=== PATIENT | female | born 1940 | race American Indian/Alaskan Native ===

== ENCOUNTER 2020-04-13 13:55 | Emergency (ER) | payer MEDICARE ==
[2020-04-13] MEDS ORDERED: ONDANSETRON 4 MG/2 ML INJ IV ONE (14:15)
[2020-04-13] MEDS ORDERED: MORPHINE 4 MG/1 ML INJ IV ONE (14:15)
--- NOTE | 2020-04-13 14:31 | Emergency Department Report ---
<ELSY MELGAR - Last Filed: 04/13/20 17:27> ED General Adult HPI - General Chief complaint: Back Pain/Injury Stated complaint: BACK PAIN Time Seen by Provider: 04/13/20 14:12 Source: patient Mode of arrival: Ambulatory Limitations: No Limitations - History of Present Illness Initial comments: Patient is a 79-year-old female presents emergency room complaints of sudden onset of left flank pain that radiates to the left lower abdomen that began last week but worsened this morning. She states that she is not sure if she twisted her back but denies any known fall or injury. She has never had pain like this in the past. She appears to be in discomfort and is unable to sit still and appears to be writhing in pain. She denies any nausea, vomiting, diarrhea, fever, hematochezia, hematemesis, melena, urinary symptoms. Denies any history of nephrolithiasis. She has a past medical history of hypertension. No allergies to medications. - Related Data Previous Rx's Medication Instructions Recorded Last Taken Type Acetaminophen [Tylenol] 500 mg PO Q6HR PRN #30 tablet 04/13/20 Unknown Rx traMADoL [Ultram] 50 mg PO Q6HR PRN #12 tablet 04/13/20 Unknown Rx Allergies Allergy/AdvReac Type Severity Reaction Status Date / Time No Known Allergies Allergy Unverified 04/13/20 14:09 ED Review of Systems Comment: All other systems reviewed and negative ED Past Medical Hx - Past Medical History Previous Medical History?: Yes Hx Hypertension: Yes Hx Diabetes: Yes - Surgical History Past Surgical History?: No - Social History Smoking Status: Never Smoker Substance Use Type: None - Medications Home Medications: Home Medications Medication Instructions Recorded Confirmed Last Taken Type Acetaminophen [Tylenol] 500 mg PO Q6HR PRN #30 tablet 04/13/20 Unknown Rx traMADoL [Ultram] 50 mg PO Q6HR PRN #12 tablet 04/13/20 Unknown Rx ED Physical Exam - General Limitations: No Limitations General appearance: alert, other (appears to be in discomfort) - Head Head exam: Present: atraumatic, normocephalic - Eye Eye exam: Present: normal appearance - ENT ENT exam: Present: mucous membranes moist - Respiratory Respiratory exam: Present: normal lung sounds bilaterally. Absent: respiratory distress, wheezes, rales, rhonchi, stridor, chest wall tenderness, accessory muscle use, decreased breath sounds, prolonged expiratory - Cardiovascular Cardiovascular Exam: Present: regular rate, normal rhythm, normal heart sounds. Absent: systolic murmur, diastolic murmur, rubs, gallop - GI/Abdominal GI/Abdominal exam: Present: soft, tenderness (left lateral ), normal bowel sounds. Absent: distended, guarding, rebound, rigid - Back Exam Back exam: Present: normal inspection, full ROM, paraspinal tenderness (left lumbar). Absent: CVA tenderness (R), CVA tenderness (L), vertebral tenderness - Neurological Exam Neurological exam: Present: alert, oriented X3, CN II-XII intact, normal gait. Absent: motor sensory deficit - Psychiatric Psychiatric exam: Present: normal affect, normal mood - Skin Skin exam: Present: warm, dry, intact ED Medical Decision Making - Lab Data Result diagrams: 04/13/20 14:37 04/13/20 14:37 Lab Results 04/13/20 04/13/20 04/13/20 Range/Units 14:37 14:37 14:37 WBC 7.1 (4.5-11.0) K/mm3 RBC 5.27 H (3.65-5.03) M/mm3 Hgb 14.6 H (10.1-14.3) gm/dl Hct 45.2 H (30.3-42.9) % MCV 86 (79-97) fl MCH 28 (28-32) pg MCHC 32 (30-34) % RDW 14.6 (13.2-15.2) % Plt Count 273 (140-440) K/mm3 Lymph % (Auto) 33.6 (13.4-35.0) % Rooks % (Auto) 8.2 H (0.0-7.3) % Eos % (Auto) 2.3 (0.0-4.3) % Baso % (Auto) 0.9 (0.0-1.8) % Lymph # (Auto) 2.4 (1.2-5.4) K/mm3 Rooks # (Auto) 0.6 (0.0-0.8) K/mm3 Eos # (Auto) 0.2 (0.0-0.4) K/mm3 Baso # (Auto) 0.1 (0.0-0.1) K/mm3 Seg Neutrophils % 55.0 (40.0-70.0) % Seg Neutrophils # 3.9 (1.8-7.7) K/mm3 PT 12.8 (12.2-14.9) Sec. INR 0.98 (0.87-1.13) APTT 27.7 (24.2-36.6) Sec. Sodium 137 (137-145) mmol/L Potassium 4.1 (3.6-5.0) mmol/L Chloride 102.7 (98-107) mmol/L Carbon Dioxide 23 (22-30) mmol/L Anion Gap 15 mmol/L BUN 13 (7-17) mg/dL Creatinine 1.0 (0.6-1.2) mg/dL Estimated GFR > 60 ml/min BUN/Creatinine Ratio 13 % Glucose 118 H (65-100) mg/dL Calcium 9.6 (8.4-10.2) mg/dL Total Bilirubin 0.50 (0.1-1.2) mg/dL AST 11 (5-40) units/L ALT 8 (7-56) units/L Alkaline Phosphatase 85 (35-129) units/L Troponin T (0.00-0.029) ng/mL Total Protein 7.1 (6.3-8.2) g/dL Albumin 4.4 (3.9-5) g/dL Albumin/Globulin Ratio 1.6 % Lipase (13-60) units/L Urine Color (Yellow) Urine Turbidity (Clear) Urine pH (5.0-7.0) Ur Specific [place] (1.003-1.030) Urine Protein (Negative) mg/dL Urine Glucose (UA) (Negative) mg/dL Urine Ketones (Negative) mg/dL Urine Blood (Negative) Urine Nitrite (Negative) Urine Bilirubin (Negative) Urine Urobilinogen (<2.0) mg/dL Ur Leukocyte Esterase (Negative) Urine WBC (Auto) (0.0-6.0) /HPF Urine RBC (Auto) (0.0-6.0) /HPF U Epithel Cells (Auto) (0-13.0) /HPF Urine Mucus /HPF 04/13/20 04/13/20 04/13/20 Range/Units 14:37 14:39 14:52 WBC (4.5-11.0) K/mm3 RBC (3.65-5.03) M/mm3 Hgb (10.1-14.3) gm/dl Hct (30.3-42.9) % MCV (79-97) fl MCH (28-32) pg MCHC (30-34) % RDW (13.2-15.2) % Plt Count (140-440) K/mm3 Lymph % (Auto) (13.4-35.0) % Rooks % (Auto) (0.0-7.3) % Eos % (Auto) (0.0-4.3) % Baso % (Auto) (0.0-1.8) % Lymph # (Auto) (1.2-5.4) K/mm3 Rooks # (Auto) (0.0-0.8) K/mm3 Eos # (Auto) (0.0-0.4) K/mm3 Baso # (Auto) (0.0-0.1) K/mm3 Seg Neutrophils % (40.0-70.0) % Seg Neutrophils # (1.8-7.7) K/mm3 PT (12.2-14.9) Sec. INR (0.87-1.13) APTT (24.2-36.6) Sec. Sodium (137-145) mmol/L Potassium (3.6-5.0) mmol/L Chloride (98-107) mmol/L Carbon Dioxide (22-30) mmol/L Anion Gap mmol/L BUN (7-17) mg/dL Creatinine (0.6-1.2) mg/dL Estimated GFR ml/min BUN/Creatinine Ratio % Glucose (65-100) mg/dL Calcium (8.4-10.2) mg/dL Total Bilirubin (0.1-1.2) mg/dL AST (5-40) units/L ALT (7-56) units/L Alkaline Phosphatase (35-129) units/L Troponin T < 0.010 (0.00-0.029) ng/mL Total Protein (6.3-8.2) g/dL Albumin (3.9-5) g/dL Albumin/Globulin Ratio % Lipase 35 (13-60) units/L Urine Color Yellow (Yellow) Urine Turbidity Clear (Clear) Urine pH 6.0 (5.0-7.0) Ur Specific [place] 1.015 (1.003-1.030) Urine Protein <15 mg/dl (Negative) mg/dL Urine Glucose (UA) Neg (Negative) mg/dL Urine Ketones Neg (Negative) mg/dL Urine Blood Neg (Negative) Urine Nitrite Neg (Negative) Urine Bilirubin Neg (Negative) Urine Urobilinogen < 2.0 (<2.0) mg/dL Ur Leukocyte Esterase Neg (Negative) Urine WBC (Auto) < 1.0 (0.0-6.0) /HPF Urine RBC (Auto) 3.0 (0.0-6.0) /HPF U Epithel Cells (Auto) 2.0 (0-13.0) /HPF Urine Mucus Few /HPF - Radiology Data Radiology results: report reviewed Ordering Physician: AVNI HERRING MD Date of Service: 04/13/20 Procedure(s): CT abdomen pelvis wo con Accession Number(s): [id number] cc: AVNI HERRING MD CT ABDOMEN AND PELVIS WITHOUT CONTRAST INDICATION / CLINICAL INFORMATION: abd pain. TECHNIQUE: Axial CT images were obtained through the abdomen and pelvis without IV contrast. Sagittal and coronal reformatted images. All CT scans at this location are performed using CT dose reduction for ALARA by means of automated exposure control. COMPARISON: None available. FINDINGS: LOWER CHEST: No significant abnormality. LIVER: No significant abnormality. GALLBLADDER: No significant abnormality. BILE DUCTS: No significant abnormality. PANCREAS: No significant abnormality. SPLEEN: No significant abnormality. ADRENALS: No significant abnormality. RIGHT KIDNEY and URETER: There appear to be multiple renal sinus cysts within the right kidney. A 1.2 cm exophytic cyst is identified near mid pole. A 2.2 cm cyst is identified at the inferior pole. LEFT KIDNEY and URETER: No significant abnormality. STOMACH and SMALL BOWEL: No significant abnormality. COLON: Diverticulosis. No acute inflammation or obstruction. APPENDIX: No significant abnormality. PERITONEUM: No free fluid. No free air. No fluid collection. LYMPH NODES: No significant adenopathy. AORTA and ARTERIES: Moderate diffuse calcifications and ectasia. The infrarenal aorta measures up to 0.9 cm in diameter. IVC and VEINS: No significant abnormality. URINARY BLADDER: No significant abnormality. REPRODUCTIVE ORGANS: No significant abnormality. ADDITIONAL FINDINGS: None. SKELETAL SYSTEM: Mild multilevel thoracolumbar spondylosis. IMPRESSION: No acute inflammatory process is appreciated. Mild diverticulosis of the colon. Moderate atherosclerotic disease in the aorta. Multiple right renal cysts as described. Multiple parapelvic renal sinus cysts are identified. Less likely this could represent right hydronephrosis. Correlate with the patient. Signer Name: Kang Womack Jr, MD Signed: 04/13/2020 3:23 PM Workstation Name: [id number] Transcribed By: TTR Dictated By: KANG WOMACK JR, MD Electronically Authenticated By: KANG WOMACK JR, MD Signed Date/Time: 04/13/20 1523 DD/ 1518 TD/TT: - Medical Decision Making Patient is a 79-year-old female presents emergency room complaints of sudden ons et of left flank pain that radiates to the left lower abdomen that began last week but worsened this morning. She states that she is not sure if she twisted her back but denies any known fall or injury. She has never had pain like this in the past. She appears to be in discomfort and is unable to sit still and appears to be writhing in pain. She denies any nausea, vomiting, diarrhea, fever, hematochezia, hematemesis, melena, urinary symptoms. Denies any history of nephrolithiasis. She has a past medical history of hypertension. No allergies to medications. Initial vitals with elevated blood pressure which improved upon repeat. On exam left lateral abdominal tenderness palpation, left paraspinal lumbar tenderness to palpation, no step-offs, no deformities, no focal neuro deficits, no rigidity, no peritoneal signs, normal bowel sounds. UA is within normal limits. Labs are normal. CT abdomen pelvis without contrast: No acute inflammatory process is appreciated. Mild diverticulosis of the colon.Moderate atherosclerotic disease in the aorta. Multiple right renal cysts as described. Multiple parapelvic renal sinus cysts are identified. Less likely this could represent right hydronephrosis. Correlate with the patient. Discussed case with Dr. Herring, ER attending, he has low suspicion for aortic dissection, advised to order a CT abdomen pelvis with IV contrast, states does not need angio studies at this time. Patient given pain medications on the emergency department as she did not drive and symptoms improved significantly . Symptoms could be related to musculoskeletal pain/muscle strain. awaiting CT abd pelvis with IV contrast results signed out to Scout Carpio PA-C pending CT abd pelvis and EKG ED Disposition Clinical Impression: Spasm of muscle of lower back, Lumbar degenerative disc disease Disposition: DC-01 TO HOME OR SELFCARE Condition: Stable Instructions: Muscle Cramps and Spasms, [id number], Degenerative Disk Disease, Muscle Strain, [id number] Additional Instructions: All lab test results were reviewed and are all nonactionable. The imaging reports showed no acute abnormalities. Therefore take medication as needed for pain, drink plenty of fluids and follow-up with your primary care physician in 3 to 5 days for reevaluation. Return to the ED immediately if symptoms get worse. Prescriptions: Acetaminophen [Tylenol] 500 mg PO Q6HR PRN #30 tablet PRN Reason: Pain , Severe (7-10) traMADoL [Ultram] 50 mg PO Q6HR PRN #12 tablet PRN Reason: Pain Referrals: LOIS LEONARDO [Other] - 3-5 Days Print Language: COOK ISLANDER <SCOUT CARPIO - Last Filed: 04/13/20 18:59> ED Review of Systems ROS: Stated complaint: BACK PAIN Other details as noted in HPI ED Course Vital Signs 04/13/20 04/13/20 04/13/20 14:07 16:30 16:46 Temperature 98.2 F Pulse Rate 68 52 L 54 L Respiratory 18 21 18 Rate Blood Pressure 181/80 158/57 158/57 O2 Sat by Pulse 96 98 96 Oximetry 04/13/20 04/13/20 04/13/20 17:00 17:30 17:46 Temperature Pulse Rate 55 L 51 L 51 L Respiratory 16 16 18 Rate Blood Pressure 158/57 133/52 133/52 O2 Sat by Pulse 94 93 91 Oximetry 04/13/20 18:00 Temperature Pulse Rate 51 L Respiratory 15 Rate Blood Pressure 133/52 O2 Sat by Pulse 93 Oximetry ED Medical Decision Making - Lab Data Result diagrams: 04/13/20 14:37 04/13/20 14:37 - Radiology Data Findings [facility] [address] [place] [address] Cat Scan Report Signed Patient: CAMERON MON MR#: [id number] : 1940 Acct:[id number] Age/Sex: 79 / F ADM Date: 04/13/20 Loc: ED Attending Dr: Ordering Physician: MITCHELL CASTRO Date of Service: 04/13/20 Procedure(s): CT abdomen pelvis w con Accession Number(s): [id number] cc: MITCHELL CASTRO CT ABDOMEN AND PELVIS WITH CONTRAST INDICATION / CLINICAL INFORMATION: Pain. TECHNIQUE: Axial CT images were obtained through the abdomen and pelvis after IV contrast. All CT scans at this location are performed using CT dose reduction for ALARA by means of automated exposure control. COMPARISON: Same day CT of the abdomen and pelvis without contrast. FINDINGS: LOWER CHEST: No significant abnormality LIVER: No significant abnormality GALLBLADDER/BILIARY TREE: No significant abnormality PANCREAS: No significant abnormality SPLEEN: No significant abnormality ADRENALS: No significant abnormality KIDNEYS / URETER: Small exophytic right renal cyst is present. Redemonstration of cystic region at the right renal hilum, which may reflect parapelvic cysts or hydronephrosis. No delayed enhancement of the right kidney. No renal or ureteral calculus is identified. URINARY BLADDER: Bladder is partially decompressed, though grossly unremarkable. REPRODUCTIVE ORGANS: No significant abnormality STOMACH / SMALL BOWEL: Stomach and small bowel are normal in caliber. No evidence of bowel inflammation. COLON: Colonic diverticulosis without evidence of diverticulitis. The appendix is normal in caliber. LYMPH NODES: No significant adenopathy. VASCULATURE: Moderate atherosclerotic calcification of the abdominal aorta and major branching vessels with 3.1 cm infrarenal abdominal aortic aneurysm and 2.3 cm right common iliac artery aneurysm. No acute abnormality is identified. OTHER: No free air, free fluid, or focal fluid collection is identified. SKELETAL SYSTEM: Degenerative changes of the spine. No acute process. IMPRESSION: 1. No acute abnormality of the abdomen or pelvis. 2. Cystic region of the right renal hilum may reflect chronically dilated right renal collecting system, possibly related to chronic UPJ obstruction or may reflect parapelvic cysts. There is no diminished enhancement of the right kidney to suggest acute obstruction. Repeat CT with delayed phase of contrast may be helpful for further evaluation, as clinically indicated. 2. Other stable chronic and incidental findings as above. Signer Name: Neelam Watkins MD Signed: 04/13/2020 5:35 PM Workstation Name: [id number] Transcribed By: JS Dictated By: NEELAM WATKINS MD Electronically Authenticated By: NEELAM WATKINS MD Signed Date/Time: 04/13/201734 DD/ 21 TD/TT: - Medical Decision Making I assumed care of the patient from . Elsy Meglar PA-C at shift change at 1800 hrs. please see her HPI, ROS and physical exam findings for further information. Lab test results were reviewed and are all nonactionable. Abdomen pelvis CT scan with contrast shows no acute abnormalities. On reevaluation, patient's pain is well controlled medications. Patient will discharge home on pain medication and advised to follow-up with her primary care physician in 3 to 5 days for reevaluation or return to the ED immediately if symptoms get worse. Critical care attestation.: If time is entered above; I have spent that time in minutes in the direct care of this critically ill patient, excluding procedure time. ED Disposition Is pt being admited?: No Does the pt Need Aspirin: No Time of Disposition: 18:57
[2020-04-13] MEDS ORDERED: SODIUM CHLORIDE 0.9% 1000 ML 1,000 ML IV ONE (14:38)
[2020-04-13 14:53] LABS: Basophils # (Auto) 0.1 K/mm3 (0.0-0.1); Basophils % (Auto) 0.9 % (0.0-1.8); Eosinophils # (Auto) 0.2 K/mm3 (0.0-0.4); Eosinophils % (Auto) 2.3 % (0.0-4.3); Hematocrit 45.2 % (30.3-42.9); Hemoglobin 14.6 gm/dl (10.1-14.3); Lymphocytes # (Auto) 2.4 K/mm3 (1.2-5.4); Lymphocytes % (Auto) 33.6 % (13.4-35.0); Mean Corpuscular HGB Conc 32 % (30-34); Mean Corpuscular Volume 86 fl (79-97); Monocytes # (Auto) 0.6 K/mm3 (0.0-0.8); Monocytes % (Auto) 8.2 % (0.0-7.3); Platelet Count 273 K/mm3 (140-440); Red Blood Count 5.27 M/mm3 (3.65-5.03); Red Cell Distribution Width 14.6 % (13.2-15.2)
[2020-04-13 15:07] LABS: INR 0.98 (0.87-1.13); Partial Thromboplastin Time 27.7 Sec. (24.2-36.6)
[2020-04-13 15:09] LABS: Bilirubin,Urine NEG (Negative); Blood,Urine NEG (Negative); Color,Urine Yellow (Yellow); Mucus,Urine FEW /HPF; Protein,Urine <15 mg/dL mg/dL (Negative); Urobilinogen,Urine < 2.0 mg/dL (<2.0); WBC,Urine < 1.0 /HPF (0.0-6.0)
[2020-04-13 15:18] LABS: Alanine Aminotransferase 8 units/L (7-56); Albumin 4.4 g/dL (3.9-5); BUN/Creatinine Ratio 13; Blood Urea Nitrogen 13 mg/dL (7-17); Calcium 9.6 mg/dL (8.4-10.2); Hemolysis Index 21
--- NOTE | 2020-04-13 15:27 | Cat Scan Report ---
CT ABDOMEN AND PELVIS WITHOUT CONTRAST INDICATION / CLINICAL INFORMATION: abd pain. TECHNIQUE: Axial CT images were obtained through the abdomen and pelvis without IV contrast. Sagittal and kumar l reformatted images. All CT scans at this location are performed using CT dose reduction for ALARA b y means of automated exposure control. COMPARISON: None available. FINDINGS: LOWER CHEST: No significant abnormality. LIVER: No significant abnormality. GALLBLADDER: No significant abnormality. BILE DUCTS: No significant abnormality. PANCREAS: No significant abnormality. SPLEEN: No significant abnormality. ADRENALS: No significant abnormality. RIGHT KIDNEY and URETER: There appear to be multiple renal sinus cysts within the right kidney. A 1.2 cm exophytic cyst is identified near mid pole. A 2.2 cm cyst is identified at the inferior pole. LEFT KIDNEY and URETER: No significant abnormality. STOMACH and SMALL BOWEL: No significant abnormality. COLON: Diverticulosis. No acute inflammation or obstruction. APPENDIX: No significant abnormality. PERITONEUM: No free fluid. No free air. No fluid collection. LYMPH NODES: No significant adenopathy. AORTA and ARTERIES: Moderate diffuse calcifications and ectasia. The infrarenal aorta measures up to 0.9 cm in diameter. IVC and VEINS: No significant abnormality. URINARY BLADDER: No significant abnormality. REPRODUCTIVE ORGANS: No significant abnormality. ADDITIONAL FINDINGS: None. SKELETAL SYSTEM: Mild multilevel thoracolumbar spondylosis. IMPRESSION: No acute inflammatory process is appreciated. Mild diverticulosis of the colon. Moderate atherosclerotic disease in the aorta. Multiple right renal cysts as described. Multiple parapelvic renal sinus cysts are identified. Less l ikely this could represent right hydronephrosis. Correlate with the patient. Signer Name: Kang Womack Jr, MD Signed: 04/13/2020 3:23 PM Workstation Name: [id number]
[2020-04-13] MEDS ORDERED: HYDROmorphone 1 MG/1 ML INJ IV ONE ×2 (17:01→17:10)
--- NOTE | 2020-04-13 17:40 | Cat Scan Report ---
CT ABDOMEN AND PELVIS WITH CONTRAST INDICATION / CLINICAL INFORMATION: Pain. TECHNIQUE: Axial CT images were obtained through the abdomen and pelvis after IV contrast. All CT sc ans at this location are performed using CT dose reduction for ALARA by means of automated exposure c ontrol. COMPARISON: Same day CT of the abdomen and pelvis without contrast. FINDINGS: LOWER CHEST: No significant abnormality LIVER: No significant abnormality GALLBLADDER/BILIARY TREE: No significant abnormality PANCREAS: No significant abnormality SPLEEN: No significant abnormality ADRENALS: No significant abnormality KIDNEYS / URETER: Small exophytic right renal cyst is present. Redemonstration of cystic region at th e right renal hilum, which may reflect parapelvic cysts or hydronephrosis. No delayed enhancement of the right kidney. No renal or ureteral calculus is identified. URINARY BLADDER: Bladder is partially decompressed, though grossly unremarkable. REPRODUCTIVE ORGANS: No significant abnormality STOMACH / SMALL BOWEL: Stomach and small bowel are normal in caliber. No evidence of bowel inflammati on. COLON: Colonic diverticulosis without evidence of diverticulitis. The appendix is normal in caliber. LYMPH NODES: No significant adenopathy. VASCULATURE: Moderate atherosclerotic calcification of the abdominal aorta and major branching vessel s with 3.1 cm infrarenal abdominal aortic aneurysm and 2.3 cm right common iliac artery aneurysm. No acute abnormality is identified. OTHER: No free air, free fluid, or focal fluid collection is identified. SKELETAL SYSTEM: Degenerative changes of the spine. No acute process. IMPRESSION: 1. No acute abnormality of the abdomen or pelvis. 2. Cystic region of the right renal hilum may reflect chronically dilated right renal collecting syst em, possibly related to chronic UPJ obstruction or may reflect parapelvic cysts. There is no diminish ed enhancement of the right kidney to suggest acute obstruction. Repeat CT with delayed phase of cont rast may be helpful for further evaluation, as clinically indicated. 2. Other stable chronic and incidental findings as above. Signer Name: Janes Watkins MD Signed: 04/13/2020 5:35 PM Workstation Name: [id number]
[2020-04-13 19:35] VITALS: BP 118/49
== END 2020-04-13 19:49 | disposition home or self-care (01) ==
LOC: ED 13:55
DX: M51.36 Other intervertebral disc degeneration, lumbar region (principal); M62.830 Muscle spasm of back; I10 Essential (primary) hypertension; E11.9 Type 2 diabetes mellitus without complications; Z79.899 Other long term (current) drug therapy
CPT/HCPCS: 36415; 74176; 74177; 80053; 81001; 83690; 84484; 85025; 85610; 85730; 93005; 96361; 96374; 96375; 99284; J1170; J2270; J2405; J7030; Q9967